=== PATIENT | male | born 1995 | race Caucasian/White ===

== ENCOUNTER 2022-02-04 20:54 | Emergency (ER) | payer OTHER ==
[~2022-02-04] VITALS: Ht 175.3 cm; Wt 84.1 kg
[2022-02-04 23:14] VITALS: BP 129/74
== END 2022-02-04 23:21 | disposition home or self-care (01) ==
LOC: M ED 20:54
DX: S90.111A Contusion of right great toe without damage to nail, initial encounter (principal); W22.8XXA Striking against or struck by other objects, initial encounter; Y92.89 Other specified places as the place of occurrence of the external cause